=== PATIENT | male | born 1955 | race Caucasian/White ===

== ENCOUNTER 2024-09-04 06:37 | Day surgery (SDC) | payer OTHER ==
[~2024-09-04] VITALS: Ht 165.1 cm; Wt 74.3 kg
[~2024-09-04 06:37] MED LIST: ALBU90OI INH; Aspir 8181 MG PO; BUPRENORPHINE1 EAC6 TD; Balanced Salt Epinephrine Irrigation Solution 500 mL IR SCH; CVS ALLERGY RL1 EAC1 PO; CYCL10 PO; DOXA4 PO; Diazepam 5 MG Tab PO PRN; Diazepam 5 MG Tab PO SCH; FLONASE ALLERG9.9 M2; LOVA40 PO; Lidocaine HCl/Pf 1% 5 ML VIAL XX SCH; MAGNESIUM OXID400 M1 PO; METO50ER PO; Moxifloxacin HCL 0.5 MG/0.1 ML 0.4MLSYR RIGHTEYE SCH; NITROGLYCERIN0.4 M3 SL; Norco 10-325 T1 EACH PO; Omeprazole20 M1 PO; Ondansetron 4 MG SoluTab MM PRN; PHENYLEPHRINE\\TROPICAMIDE\\TETRACAINE OPHTHALMIC DILATING SOLN RIGHTEYE PRN; Povidone-Iodine 450 DROP/30 ML Solution ONE; Povidone-Iodine 450 DROP/30 ML Solution RIGHTEYE SCH; ROXYBOND5 MG PO; TRAZ50 PO; Tetracaine HCl/Pf 0.5% Opth Soln 4 ml ONE
[2024-09-04] MEDS ORDERED: Lidocaine HCl/Pf 1% 5 ML VIAL ONE (06:42)
[2024-09-04] MEDS ORDERED: Diazepam 10 MG Tab ONE (06:51)
[2024-09-04] MEDS ORDERED: Methocarbamol500 MG PO (07:08)
--- NOTE | 2024-09-04 07:14 | NUR ---
09/04/24 0714 Juan Nguyen CALL LIGHT WITHIN REACH. JUANCARLOSIN IN RIGHT EYE AT 0703 AND CHETNA IN AT 0705.
[2024-09-04] MEDS ORDERED: Diazepam 5 MG Tab ONE (07:19)
--- NOTE | 2024-09-04 08:00 | NUR ---
09/04/24 0800 Sobia Meyer BP 117/69 P-67 [id number]
[2024-09-04 08:16] VITALS: BP 107/73
--- NOTE | 2024-09-04 08:29 | NUR ---
09/04/24 0829 Torie Bustillos D/Peterson INSTRUCTIONS GIVEN TO PT, UNDERSTANDING VERBALIZED. PT DENIES PAIN/NAUSEA, VSS, ON RA. PT TOLERATING PO LIQUIDS W/O COMPLAINT. PT HAS ALL BELONGINGS. PT AMBULATES TO PT PICKUP ENTRANCE, STEADY GAIT NOTED. PT TO BE DRIVEN HOME BY S.O. IN PRIVATE VEHICLE. NO VISIBLE SIGNS OF DISTRESS NOTED.
== END 2024-09-04 08:30 | disposition home or self-care (01) ==
LOC: ORSCSDS 06:37
PROVIDERS: Student in an Organized Health Care Education/Training Program
PROC: 08RJ3JZ Replacement of Right Lens with Synthetic Substitute, Percutaneous Approach (ICD-10-PCS; principal; 2024-09-04 08:00)
DX: H25.813 Combined forms of age-related cataract, bilateral (principal); H35.30 Unspecified macular degeneration; Z87.891 Personal history of nicotine dependence; Z79.899 Other long term (current) drug therapy
CPT/HCPCS: A9270; J2003; V2632

== ENCOUNTER 2024-09-11 07:06 | Day surgery (SDC) | payer OTHER ==
[~2024-09-11] VITALS: Ht 165.1 cm; Wt 74.8 kg
[~2024-09-11 07:06] MED LIST changes: +Diazepam 10 MG Tab ONE; +Lidocaine HCl/Pf 1% 5 ML VIAL ONE; +Methocarbamol500 MG PO; +Moxifloxacin HCL 0.5 MG/0.1 ML 0.4MLSYR LEFTEYE SCH; -Moxifloxacin HCL 0.5 MG/0.1 ML 0.4MLSYR RIGHTEYE SCH; +PHENYLEPHRINE\\TROPICAMIDE\\TETRACAINE OPHTHALMIC DILATING SOLN LEFTEYE PRN; -PHENYLEPHRINE\\TROPICAMIDE\\TETRACAINE OPHTHALMIC DILATING SOLN RIGHTEYE PRN; +Povidone-Iodine 450 DROP/30 ML Solution LEFTEYE SCH; -Povidone-Iodine 450 DROP/30 ML Solution RIGHTEYE SCH
--- NOTE | 2024-09-11 07:42 | NUR ---
09/11/24 0742 Juan Nguyen CALL LIGHT WITHIN REACH. PT ON CONTINOUS PULSE OXIMETER FOR MONITORING. TETRACAINE IN AT 0737 IN LEFT EYE AND PLEDGETT IN AT 0738
[2024-09-11] MEDS ORDERED: Diazepam 5 MG Tab ONE (08:01)
--- NOTE | 2024-09-11 08:47 | NUR ---
09/11/24 0847 Sobia Meyer BP 120/68, P 60, O2 100%. PT RESTING COMFORTABLY.
[2024-09-11 09:20] VITALS: BP 118/65
== END 2024-09-11 09:12 | disposition home or self-care (01) ==
LOC: ORSCSDS 07:06
PROVIDERS: Student in an Organized Health Care Education/Training Program
PROC: 08RK3JZ Replacement of Left Lens with Synthetic Substitute, Percutaneous Approach (ICD-10-PCS; principal; 2024-09-11 08:30)
DX: H25.812 Combined forms of age-related cataract, left eye (principal); Z96.1 Presence of intraocular lens; Z87.891 Personal history of nicotine dependence; H35.30 Unspecified macular degeneration; Z79.82 Long term (current) use of aspirin; Z79.899 Other long term (current) drug therapy
CPT/HCPCS: A9270; J2003; V2632

== ENCOUNTER → 2025-05-07 | Outpatient (CLI) | payer OTHER ==
[~2025-05-07] MED LIST changes: -Balanced Salt Epinephrine Irrigation Solution 500 mL IR SCH; -Diazepam 10 MG Tab ONE; -Diazepam 5 MG Tab PO PRN; -Diazepam 5 MG Tab PO SCH; -Lidocaine HCl/Pf 1% 5 ML VIAL ONE; -Lidocaine HCl/Pf 1% 5 ML VIAL XX SCH; -Moxifloxacin HCL 0.5 MG/0.1 ML 0.4MLSYR LEFTEYE SCH; -Ondansetron 4 MG SoluTab MM PRN; -PHENYLEPHRINE\\TROPICAMIDE\\TETRACAINE OPHTHALMIC DILATING SOLN LEFTEYE PRN; -Povidone-Iodine 450 DROP/30 ML Solution LEFTEYE SCH; -Povidone-Iodine 450 DROP/30 ML Solution ONE; -Tetracaine HCl/Pf 0.5% Opth Soln 4 ml ONE
== END | disposition home or self-care (01) ==
LOC: LAB 17:33 → LAB SHORT 17:33
DX: L08.9 Local infection of the skin and subcutaneous tissue, unspecified (principal)
CPT/HCPCS: 87070; 87077; 87147; 87186; 87205